=== PATIENT | female | born 1980 | race Caucasian/White ===

== ENCOUNTER 2021-08-12 09:20 | Emergency (ER) | payer OTHER, SELFPAY ==
[2021-08-12 09:28] VITALS: BP 135/78; PULSE 80; RESP 16; TEMP 36.7; O2SAT 100
--- NOTE | 2021-08-12 09:35 | ED.EAR ---
HPI - Ear Problem General Chief complaint: Dental/Oral Stated complaint: Toothache/Ear Pain Time Seen by Provider: 08/12/21 09:30 Source: patient, RN notes reviewed and old records reviewed Mode of arrival: ambulatory Limitations: no limitations History of Present Illness HPI Narrative: 41-year-old female who presents to [facility] with 1 week duration of pain to her right ear and swelling of right jaw.Patient states she has a broken molar that been very painful had arrangements made for extraction and spouse canceled her dental insurance. Patient has noted fractured decayed #30 bottom molar on the right lower jaw with swelling and redness of gum surrounding tooth.Patient reports that she has been taking Ibuprofen and also Excedrin for her discomfort MD Complaint: ear pain and decreased hearing Location: right ear Duration: constant Severity: moderate Associated symptoms ear: tooth pain and other (right ear pain and some decreased hearing) Treatment prior to arrival: oral analgesic Related Data Allergies Allergy/AdvReac Type Severity Reaction Status Date / Time No Known Allergies Allergy Unverified 08/12/21 09:37 Review of Systems Review of Systems: CONSTITUTIONAL: Denies fever, chills, or sweats. EYES: Denies visual changes, redness, or discharge. ENT: Denies rhinorrhea, congestion, sore throat, positive right ear pain,decreased hearing, swelling to right jaw, dental pain CARDIOVASCULAR: Denies chest pain, palpitations, or edema. RESPIRATORY: Denies cough or dyspnea. GASTROINTESTINAL: Denies abdominal pain, nausea, vomiting, or diarrhea. GENITOURINARY: Denies dysuria or hematuria. SKIN: Denies rash or itching. MUSCULOSKELETAL: Denies back pain, joint pain, or myalgia. NEUROLOGIC: Denies headache, numbness, or weakness. PSYCHIATRIC: Positive history of anxiety or depression. All systems reviewed & are unremarkable except as noted in HPI and below PMFSH Past Medical History Medical History (Updated 08/13/21 @ 08:48 by Rosey Jenkins NP) Anxiety and depression Surgical History Surgical History (Updated 08/13/21 @ 08:48 by Rosey Jenkins NP) H/O left nephrectomy donated kidney H/O tubal ligation Hx of cholecystectomy Family History Family History (Updated 08/13/21 @ 08:48 by Rosey Jenkins NP) Mother COPD (chronic obstructive pulmonary disease) Social History Social History (Updated 08/13/21 @ 08:46 by Rosey Jenkins NP) Smoking packs per day: 0.5 Smoking cigarettes per day: 10.0 Years smoked: 20 Smoking pack-years: 10.00 Smoking status: Current every day smoker Tobacco type: cigarettes Alcohol intake: current Alcohol use details: social Substance use type: does not use Living arrangements: with family Gender identity (if verbalized by the patient): Female Comments At time of signature, agree with nursing past medical, surgical, social and family history. There is no relevant family history pertinent to the presenting complaint Exam Narrative: GENERAL: Well-appearing, well-nourished, and in no acute distress. HEAD: Normocephalic, atraumatic. EYES: PERRLA and EOMI. ENT: Nares clear, no rhinorrhea or epistaxis. Mucous membranes moist.TM's normal with good light reflex, throat pink with no lesions or exudates or tonsil swelling. #30 tooth broken and decayed with swelling and redness of gum surrounding tooth, no drainage noted. right facial swelling along jaw area radiating to right ear. no difficulty with swallowing or breathing no Alonso angina noted. NECK: Supple.no lymphadenopathy CHEST: Clear to auscultation. No respiratory distress.SAO2 100% on room air HEART: Regular rate and rhythm. No murmur heard. Normal peripheral pulses. ABDOMEN: Soft, nontender, nondistended, normal active bowel sounds. EXTREMITIES: Normal range of motion. No edema. SKIN: Warm, dry, no rash. NEURO: No focal deficits. Alert and oriented x3. Course Course Level of Care: Express Care Visi
== END 2021-08-12 09:55 | disposition home or self-care (01) ==
PROVIDERS: Emergency Provider Registered Nurse
DX: K04.7 Periapical abscess without sinus (principal); H92.01 Otalgia, right ear; F17.210 Nicotine dependence, cigarettes, uncomplicated
CPT/HCPCS: 99203; G0463

== ENCOUNTER 2022-05-11 18:08 | Emergency (ER) | payer SELFPAY ==
--- NOTE | 2022-05-11 18:11 | ED.EYEPROB ---
HPI - Eye Problem General Chief complaint: Eye Problems Stated complaint: fb in left eye Time Seen by Provider: 05/11/22 18:11 Source: patient and RN notes reviewed History of Present Illness HPI Narrative: Patient is a 41-year-old female who presents to urgent care with complaints of a foreign body in the left eye. Patient states that she noticed it tonight after going to put makeup on. States that the eye is a little itchy. Patient does not wear contacts. Patient does were glasses. Denies any vision changes or trauma to the eye. No other acute complaints. no acute distress noted. Patient aware of the plan of care. Some parts of this dictation were generated by voice recognition software and may contain typographical and/or grammatical inaccuracies. Related Data Allergies Allergy/AdvReac Type Severity Reaction Status Date / Time No Known Allergies Allergy Unverified 08/12/21 09:37 Review of Systems Review of Systems: CONSTITUTIONAL: Denies fever, chills, or sweats. EYES: Reports of itchiness, clear drainage and possible foreign body to the left eye ENT: Denies rhinorrhea, congestion, sore throat, or otalgia. CARDIOVASCULAR: Denies chest pain, palpitations, or edema. RESPIRATORY: Denies cough or dyspnea. GASTROINTESTINAL: Denies abdominal pain, nausea, vomiting, or diarrhea. GENITOURINARY: Denies dysuria or hematuria. SKIN: Denies rash or itching. MUSCULOSKELETAL: Denies back pain, joint pain, or myalgia. NEUROLOGIC: Denies headache, numbness, or weakness. All other systems reviewed are negative, except as documented in HPI. [facility], [facility] Past Medical History Medical History (Updated 05/11/22 @ 18:35 by NAYELI Muñoz) Anxiety and depression Surgical History Surgical History (Updated 08/13/21 @ 08:48 by Rosey Jenkins NP) H/O left nephrectomy donated kidney H/O tubal ligation Hx of cholecystectomy Family History Family History (Updated 08/13/21 @ 08:48 by Rosey Jenkins NP) Mother COPD (chronic obstructive pulmonary disease) Social History Social History (Updated 08/13/21 @ 08:46 by Rosey Jenkins NP) Smoking packs per day: 0.5 Smoking cigarettes per day: 10.0 Years smoked: 20 Smoking pack-years: 10.00 Smoking status: Current every day smoker Tobacco type: cigarettes Alcohol intake: current Alcohol use details: social Substance use type: does not use Living arrangements: with family Gender identity (if verbalized by the patient): Female Comments At the time of my signature, I reviewed and agree with the nursing past medical, surgical, social, and family history. There is no relevant family history pertinent to the patient complaint. Exam Narrative: GENERAL: This is a well-nourished, well-developed patient, in no apparent distress. HEAD: normocephalic, atraumatic. EYES: PERRL. Sclera clear/white. Vision is grossly intact. clear drainage from the left eye with obvious conjunctival fluid-filled cyst to the medial inner canthus EARS: External ears normal, auditory canals clear and without drainage, TMs normal without perforation. Hearing grossly intact. NOSE: External nose normal with no obvious nasal discharge, nares without redness, no rhinorrhea. THROAT: Mucous membranes moist, posterior pharynx clear. NECK: Neck supple SKIN: warm, intact with no suspicious lesions or rash, good texture and turgor. NEURO: awake, alert, and oriented to person, place and time. There were no obvious focal neurologic abnormalities. EXTREMITIES: No clubbing, cyanosis, or edema. Course Course Level of Care: Express Care Visit Vital Signs Vital signs: Vital Signs Temperature 98.6 F 05/11/22 18:14 Pulse Rate 83 05/11/22 18:14 Respiratory Rate 20 05/11/22 18:14 Blood Pressure 129/73 05/11/22 18:14 Pulse Oximetry 100 05/11/22 18:14 Oxygen Delivery Room Air 05/11/22 18:14 Temperature 98.6 F 05/11/22 18:14 Pulse Rate 83 05/11/22 18:14 Re
[2022-05-11 18:14] VITALS: BP 129/73; PULSE 83; RESP 20; TEMP 37; O2SAT 100
== END 2022-05-11 18:39 | disposition home or self-care (01) ==
PROVIDERS: Emergency Provider Nurse Practitioner Family; PCP Emergency Medicine
DX: H11.442 Conjunctival cysts, left eye (principal); F17.210 Nicotine dependence, cigarettes, uncomplicated; F41.9 Anxiety disorder, unspecified; F32.A Depression, unspecified
CPT/HCPCS: 99213; G0463

== ENCOUNTER 2023-05-23 13:37 | Emergency (ER) | payer SELFPAY ==
--- NOTE | 2023-05-23 13:40 | PC.NURSE ---
pulse ox 100% and hr 77 while at reg.
[2023-05-23 13:44] VITALS: BP 149/81; PULSE 67; RESP 18; TEMP 36.4; O2SAT 100
--- NOTE | 2023-05-23 13:54 | ED.URI ---
HPI - URI/Sore Throat General Chief Complaint: Upper Respiratory Infection Stated Complaint: Shortness of Breath/Cough History of Present Illness HPI Narrative: Patient presents for evaluation of cough nasal congestion fever headache and body aches. Patient states she has more fatigue than usual and just wants to lay around and sleep. Related Data Allergies Allergy/AdvReac Type Severity Reaction Status Date / Time No Known Allergies Allergy Unverified 05/23/23 13:40 Review of Systems Review of Systems: CONSTITUTIONAL: Denies chills, or sweats. Reports fever and generalized body aches EYES: Denies visual changes, redness, or discharge. ENT: Denies otalgia. Reports nasal congestion runny nose and sore throat CARDIOVASCULAR: Denies chest pain, palpitations, or edema. RESPIRATORY: Denies dyspnea. Reports occasional cough GASTROINTESTINAL: Denies abdominal pain, nausea, vomiting, or diarrhea. GENITOURINARY: Denies dysuria or hematuria. SKIN: Denies rash or itching. MUSCULOSKELETAL: Denies back pain, joint pain, or myalgia. Reports generalized body aches NEUROLOGIC: Denies headache, numbness, or weakness. PSYCHIATRIC: Denies anxiety or depression. [facility] Past Medical History Medical History (Updated 05/23/23 @ 13:56 by NAYELI Muller) Anxiety and depression Surgical History Surgical History (Updated 08/13/21 @ 08:48 by Rosey Jenkins NP) H/O left nephrectomy donated kidney H/O tubal ligation Hx of cholecystectomy Family History Family History (Updated 08/13/21 @ 08:48 by Rosey Jenkins NP) Mother COPD (chronic obstructive pulmonary disease) Social History Social History (Updated 08/13/21 @ 08:46 by Rosey Jenkins NP) Smoking packs per day: 0.5 Smoking cigarettes per day: 10.0 Years smoked: 20 Smoking pack-years: 10.00 Smoking status: Current every day smoker Tobacco type: cigarettes Alcohol intake: current Alcohol use details: social Substance use type: does not use Living arrangements: with family Gender identity (if verbalized by the patient): Female Comments At time of signature, agree with nursing past medical, surgical, social and family history. There is no relevant family history pertinent to the presenting complaint Exam Narrative: The patient is a well-developed, well-nourished in no acute distress. SKIN: Skin is warm and dry without erythema, swelling or exudate. There is good turgor. No tenting. HEAD: Atraumatic. Normocephalic. No temporal or scalp tenderness. EYES: Moist and bright. Sclera and conjunctivae normal. No discharge. PERRLA. Extraocular motions intact. Gross visual acuity intact. EARS: Pinna is normal shape and contour. Clear external auditory canals. TM pearly garcia with good cone of light, no erythema or suppuration. Bilateral cerumen noted no gross hearing deficit. NOSE: pink, moist mucosa with good air movement. Clear rhinorrhea without nasal flaring. Septum midline. Mouth: moist mucous membranes. THROAT; mild erythema noted to posterior oropharynx with moderate postnasal drainage. Without exudate or ulceration.. Uvula midline. Normal movement of soft palate. NECK: Supple and nontender with full range of motion without discomfort. No meningeal signs. LUNGS: Equal and bilateral breath sounds without wheezes, rales or rhonchi. CHEST: The chest wall is without retractions or use of accessory muscles. HEART: Has a regular rate and rhythm without murmur, gallops, click or rub. ABDOMEN: Soft, nontender with positive active bowel sounds. No rebound tenderness. EXTREMITIES: Without cyanosis, clubbing or edema. Equal 2+ distal pulses and 2 second capillary refill noted. NEUROLOGIC: alert, active, . The patient moves all extremities with normal muscle strength. Normal muscle tone is noted. Normal coordination is noted. NO focal neurological findings noted. Course Course Level of Care: Express Care Visit Vital Signs Vital signs: Wendy
== END 2023-05-23 14:16 | disposition home or self-care (01) ==
PROVIDERS: Emergency Provider Nurse Practitioner Family
DX: J06.9 Acute upper respiratory infection, unspecified (principal); B97.89 Other viral agents as the cause of diseases classified elsewhere; F17.210 Nicotine dependence, cigarettes, uncomplicated; Z20.822 Contact with and (suspected) exposure to COVID-19
CPT/HCPCS: 87081; 87426; 87804; 87880; 99213; G0463